=== PATIENT | male | born 1940 | race Caucasian/White ===

== ENCOUNTER 2016-06-28 12:01 | Emergency (ER) | payer OTHER ==
[~2016-06-28] VITALS: Ht 182.9 cm; Wt 104.0 kg
[~2016-06-28 12:01] MED LIST: ALTACE10 MG PO; ASPIRIN325 MG PO; ASPIRIN81 M2 PO; BENADRYL25 MG PO; CALTRATE 6001 TABLE1 PO; Coreg PO; Coumadin dosing per PO; ENDOCET 5-3251 EACH PO; FEOSOL325 MG PO; FISH OIL CONC1 EACH PO; Fosamax PO; KEFLEX500 MG PO; LIPITOR80 MG PO; Lasix; Lasix PO; MEDROL DOSEPAK4 MG PO; Omega III EPA + DHA PO; Oyst-Cal D, Oscal W/ PO; VITAMIN D1000 INTUN PO; ZETIA10 MG PO
[2016-06-28 13:34] VITALS: BP 134/68
== END 2016-06-28 13:34 | disposition home or self-care (01) ==
LOC: EME 12:01
DX: S61.213A Laceration without foreign body of left middle finger without damage to nail, initial encounter (principal); W26.0XXA Contact with knife, initial encounter; Y93.G1 Activity, food preparation and clean up; Y92.000 Kitchen of unspecified non-institutional (private) residence as the place of occurrence of the external cause; Z79.82 Long term (current) use of aspirin; Z87.891 Personal history of nicotine dependence
CPT/HCPCS: 99281; 99284